=== PATIENT | female | born 1955 | race Caucasian/White ===

== ENCOUNTER 2019-02-13 07:16 | Day surgery (SDC) | payer MEDICAID ==
[~2019-02-13 07:16] MED LIST: Midazolam 1 MG/ML 2 ML SDV ONE; Propofol 200 MG/20 ML SDV ONE; fentaNYL 100 MCG/2 ML SDV ONE
[2019-02-13] MEDS ORDERED: Lactated Ringers 1,000 ML IV SCH (08:45)
[2019-02-13] MEDS ORDERED: Propofol 200 MG/20 ML SDV ONE (09:32)
[2019-02-13 11:03] VITALS: BP 132/71; PULSE 59
--- NOTE | 2019-02-13 12:51 | OR ---
DATE OF PROCEDURE: 02/13/2019 PREOPERATIVE DIAGNOSIS: Positive Cologuard. POSTOPERATIVE DIAGNOSES: Diverticulosis, multiple colon polyps. PROCEDURE: Colonoscopy to the cecum with biopsy resection and/or snare cautery polypectomy of polyps at 50 cm, distal transverse colon, proximal transverse colon, right colon, cecum, transverse colon, 20 cm from the anal verge, and rectum. SURGEON: Vj Bender MD ANESTHESIA: IV anesthesia with monitored anesthesia care. INDICATION: This 63-year-old white female is referred for a colonoscopy. She had a positive Cologuard. She says her last colonoscopic exam was done 12 years ago. I counseled her for the procedure, including risks and alternatives, and she gave her informed consent to proceed. DESCRIPTION OF PROCEDURE: The patient was placed in the left lateral decubitus position. IV anesthesia was administered by the Anesthesia Service. Time-out was held. A rectal exam was performed, which was unremarkable. The flexible video Olympus colonoscope was introduced through her anus, up her rectum, and out her colon all the way to the cecum. En route, we encountered multiple polyps, removing polyps at 50 cm, distal transverse colon, proximal transverse colon, right colon, and cecum. The proximal transverse colon polyp was biopsied initially. It was too large to remove using this technique and a snare was passed about its base. It was elevated up away from the bowel wall and amputated as electrocautery was applied. This polyp was aspirated through the scope and captured in a polyp trap. The scope was then slowly withdrawn from the cecum examining the mucosa throughout. We did see a single diverticulum in the left colon. At 20 cm, we saw a larger polyp. This was initially biopsied and then removed with the snare. Again, this involved placing the snare about the polyp's base, elevating it up away from the bowel wall and amputated it as electrocautery was applied. It was aspirated up through the scope and captured in a polyp trap. The scope was brought back to the rectum. We saw 2 small polyps in the rectum adjacent to each other, which were removed and sent to the laboratory as one specimen. The scope was retroflexed with the most distal rectum appearing unremarkable. The scope was straightened and removed. She tolerated the procedure well. Vj Bender MD /[id number] MTDD
== END 2019-02-13 11:13 | disposition home or self-care (01) ==
LOC: JP.SDS 07:16
PROVIDERS: ATTEND Surgery
DX: D12.5 Benign neoplasm of sigmoid colon (principal); D12.3 Benign neoplasm of transverse colon; D12.0 Benign neoplasm of cecum; D12.2 Benign neoplasm of ascending colon; K63.5 Polyp of colon; K62.1 Rectal polyp; K57.30 Diverticulosis of large intestine without perforation or abscess without bleeding; I35.1 Nonrheumatic aortic (valve) insufficiency; I10 Essential (primary) hypertension; E78.5 Hyperlipidemia, unspecified; J45.909 Unspecified asthma, uncomplicated; F17.200 Nicotine dependence, unspecified, uncomplicated; Z88.5 Allergy status to narcotic agent; Z88.2 Allergy status to sulfonamides; Z88.8 Allergy status to other drugs, medicaments and biological substances; Z91.030 Bee allergy status
CPT/HCPCS: 45380; 45385; J2250; J2704; J3010; J7120; 88305

== ENCOUNTER 2020-02-11 06:19 | Day surgery (SDC) | payer MEDICARE ==
[2020-02-11] MEDS: Sodium Chloride 0.9% 1,000 ML IV SCH (07:02)
[2020-02-11] MEDS ORDERED: Propofol 200 MG/20 ML SDV ONE (07:31)
[2020-02-11] MEDS ORDERED: fentaNYL 100 MCG/2 ML SDV ONE (07:31)
[2020-02-11] MEDS ORDERED: Midazolam 1 MG/ML 2 ML SDV ONE (07:32)
[2020-02-11 09:42] VITALS: BP 115/63; PULSE 61
--- NOTE | 2020-02-11 10:46 | OR ---
DATE OF PROCEDURE: 02/11/2020 SURGEON: Abdirahman Gregory MD PROCEDURE: Colonoscopy. FINDINGS: 1. Cecal polyp, approximately 5 mm, completely removed using cold biopsy forceps. 2. Ascending colon polyp, approximately 5 mm, completely removed using cold biopsy forceps. 3. Transverse colon polyp, approximately 8 mm, completely removed using hot snare wire device. COMPLICATIONS: None. TARIFF INSPECTOR: None. ANESTHESIA: MAC. PREOPERATIVE DIAGNOSIS: History of colon polyp. POSTOPERATIVE DIAGNOSIS: History of colon polyp. RISKS: Risks, benefits, alternatives, and limitations including, but not limited to infection bleeding and perforation were explained to the patient, who wished to proceed. PROCEDURE IN DETAIL: The patient was placed in left lateral decubitus position. Digital rectal exam was performed without abnormality. Scope was introduced and advanced atraumatically to the ileocecal valve. Photo was taken. Scope was brought back through the ascending, transverse, descending colon, and retroflexed. The aforementioned polyps were all identified and completely removed as described above. The prep was marginally acceptable with solid and liquid stool remaining. Suction and irrigation techniques were used to facilitate and maximize observation with approximately 90% of the luminal surface that could be seen. No abnormalities on retroflexion. The patient tolerated the procedure well. Abdirahman Gregory MD /[id number]
== END 2020-02-11 09:45 | disposition home or self-care (01) ==
LOC: JP.SDS 06:19
PROVIDERS: ATTEND Surgery
DX: Z12.11 Encounter for screening for malignant neoplasm of colon (principal); D12.0 Benign neoplasm of cecum; D12.2 Benign neoplasm of ascending colon; D37.4 Neoplasm of uncertain behavior of colon; I10 Essential (primary) hypertension; Z86.010 Personal history of colon polyps
CPT/HCPCS: 88305; J2250; J2704; J3010; J7030

== ENCOUNTER 2020-06-09 20:01 | Emergency (ER) | payer MEDICARE ==
[2020-06-09 20:36] VITALS: BP 147/53; PULSE 74
--- NOTE | 2020-06-09 20:55 | EDM.PDOC ---
ED HPI GENERAL MEDICAL PROBLEM - General Chief Complaint: Lower Extremity Injury/Pain Stated Complaint: RIGHT FOOT INJURY/FALL Time Seen by Provider: 06/09/20 20:46 Source of Information: Reports: Patient, RN Notes Reviewed History Limitations: Reports: No Limitations - History of Present Illness INITIAL COMMENTS - FREE TEXT/NARRATIVE: 64-year-old female presents emergency department a complaint of right ankle pain, she injured herself this morning when she slipped on icy stairs and rolled her ankle she believes it was inward. She has been walking on it all day but the pain has gotten significantly worse. Can no longer bear weight Right Foot Pain Score (Numeric/FACES): 8 - Related Data Allergies Allergy/AdvReac Type Severity Reaction Status Date / Time bee venom protein (honey bee) Allergy Cannot Verified 06/09/20 20:50 Remember Sulfa (Sulfonamide Allergy Hives Verified 06/09/20 20:50 Antibiotics) oxycodone AdvReac Nausea Verified 06/09/20 20:50 Qrrfmcn-Roi-Xff Reductase AdvReac Muscle Verified 06/09/20 20:50 Inhibitor Aches Home Meds: Home Meds Losartan [Cozaar] 50 mg PO DAILY 06/04/13 [History] Theophylline [Real-24] 600 mg PO BID 06/04/13 [History] metFORMIN [metFORMIN XR] 1,000 mg PO BIDM 06/04/13 [History] EPINEPHrine [Epipen 2-Beka] 0.3 ml IM ONETIME PRN 02/11/19 [History] Metoprolol Succinate [Toprol XL] 50 mg PO DAILY 02/13/19 [History] Triamcinolone Acetonide [Kenalog 0.1% Crm] 1 applic TOP BID 02/10/20 [History] tiZANidine [Zanaflex] 4 mg PO BID PRN 02/10/20 [History] Acetaminophen [Tylenol Extra Strength] 500 mg PO ASDIRECTED PRN 02/11/20 [History] Multivit-Min/Iron/Folic/Lutein [Centrum Silver Women Tablet] 1 each PO DAILY 02/11/20 [History] Past Medical History HEENT History: Reports: Allergic Rhinitis, Sinusitis Cardiovascular History: Reports: Heart Murmur, Hypertension, Other (See Below) Other Cardiovascular History: aortic insuffiancy Respiratory History: Reports: Asthma Gastrointestinal History: Reports: Colon Polyp Genitourinary History: Reports: None 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: Musculoskeletal History: Reports: Arthritis, Fracture Neurological History: Reports: Concussion, Head Trauma Endocrine/Metabolic History: Reports: Diabetes, Type II, Obesity/BMI 30+ Hematologic History: Reports: Blood Transfusion(s) - Infectious Disease History Infectious Disease History: Reports: Chicken Pox, Measles, Mumps, Shingles, Other (See Below) Other Infectious Disease History: hepatitis in 1st grade - Past Surgical History HEENT Surgical History: Reports: Oral Surgery, Tonsillectomy Cardiovascular Surgical History: Reports: None Respiratory Surgical History: Reports: None GI Surgical History: Reports: Appendectomy, Colonoscopy Female Surgical History: Reports: Tubal Ligation, Other (See Below) Other Female Surgeries/Procedures: 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 Endocrine Surgical History: Reports: None Musculoskeletal Surgical History: Reports: Shoulder Surgery, Other (See Below) Social & Family History - Caffeine Use Caffeine Use: Reports: None Review of Systems - Review of Systems Review Of Systems: See Below Constitutional: Reports: No Symptoms Musculoskeletal: Reports: Foot Pain (Right ankle) ED EXAM, GENERAL - Physical Exam Exam: See Below Free Text/Narrative:: Examination of the right ankle I do appreciate a little bit of edema lateral aspect of the lateral malleolus she is tender to the touch both malleolus ease will not tolerate any tilt test at all does tolerate a drawer test without difficulty pedal pulses +2 cannot bear weight does have abrasion of the dorsum of the foot Course - Vital Signs Last Recorded V/S: Last Vital Signs Temp 96.5 F L 06/09/20 20:50 Pulse 74 06/09/20 20:50 Resp 16 06/09/20 20:50 BP 147/53 H 06/09/20 20:50 Pulse Ox 97 06/09/20 20:50 - Orders/Labs/Meds Orders: Active Orders 24 hr Category Date Time Status Ankle Min 3V Rt [CR] Stat Exams 06/09/20 20:52 Taken Departure - Departure Time of Disposition: 21:16 Disposition: Home, Self-Care 01 Condition: Fair Clinical Impression: Right ankle sprain Qualifiers: Encounter type: initial encounter Involved ligament of ankle: unspecified ligament Qualified Code(s): S93.401A - Sprain of unspecified ligament of right ankle, initial encounter - Discharge Information Instructions: Ankle Sprain Referrals: Sperle,Jose J, MD [Primary Care Provider] - Forms: ED Department Discharge Additional Instructions: Continue to use the splint and crutches as needed for pain control try the Tylenol 3 for breakthrough pain remember not to take more than 4000 mg Tylenol in a 24-hour. Please followup with your primary care provider in 3-5 days if not better, please call return to the emergency department with worsening of symptoms. Sepsis Event Note (ED) - Evaluation Sepsis Screening Result: No Definite Risk - Focused Exam Vital Signs: Vital Signs Temp Pulse Resp BP Pulse Ox 06/09/20 20:50 96.5 F L 74 16 147/53 H 97 06/09/20 20:34 96.5 F L 74 16 147/53 H 97 - My Orders Last 24 Hours: My Active Orders 06/09/20 20:52 Ankle Min 3V Rt [CR] Stat - Assessment/Plan Last 24 Hours: My Active Orders 06/09/20 20:52 Ankle Min 3V Rt [CR] Stat Plan: Assessment Acuity = acute Site and laterality = right ankle sprain Etiology = secondary trauma Manifestations = none Location of injury = Home Lab values = ankle x-ray I did review films myself I cannot appreciate any acute process, the official read from radiology is pending Plan Given an air gel splint crutches prescription written for Tylenol with codeine 1 tablet p.o. every 3 hours as needed total #15 follow-up primary care 3 to 5 days if not better will contact if the radiology read differs This note was dictated using [employer] voice recognition software please call with any questions on syntax or grammar.
--- NOTE | 2020-06-10 09:21 | CR ---
Ankle Min 3V Rt CLINICAL HISTORY: Pain, fall FINDINGS: The soft tissues are mildly prominent. There is a small ossific density off the tip of the fibula. This could represent a ligamentous avulsion. Ankle mortise is intact. There is a prominent os trigonum. There is a double density over the distal fibula which may be an osseous prominence. No cortical fracture line is seen. Impression: Tiny ossific density at the tip of the fibula. This could be a secondary ossification center or small ligamentous avulsion. There is some asymmetry in the distal fibula without obvious fracture line. If clinical symptomatology persists or worsens a repeat exam is recommended.
== END 2020-06-09 21:58 | disposition home or self-care (01) ==
LOC: JP.ED 20:01
DX: S93.401A Sprain of unspecified ligament of right ankle, initial encounter (principal); I10 Essential (primary) hypertension; J45.909 Unspecified asthma, uncomplicated; E11.9 Type 2 diabetes mellitus without complications; E66.9 Obesity, unspecified; Z68.33 Body mass index [BMI] 33.0-33.9, adult; Z91.030 Bee allergy status; Z88.2 Allergy status to sulfonamides; Z88.5 Allergy status to narcotic agent; Z88.8 Allergy status to other drugs, medicaments and biological substances; Z79.84 Long term (current) use of oral hypoglycemic drugs; Z79.899 Other long term (current) drug therapy; X50.9XXA Other and unspecified overexertion or strenuous movements or postures, initial encounter
CPT/HCPCS: 73610-26-RT; 73610-RT; 99282; 99283

== ENCOUNTER 2021-05-27 07:41 | Day surgery (SDC) | payer MEDICARE ==
[2021-05-27] MEDS ORDERED: Sodium Chloride 0.9% 1,000 ML IV SCH (08:15)
[2021-05-27 11:21] VITALS: BP 106/49; PULSE 54
--- NOTE | 2021-05-28 08:22 | OR ---
DATE OF PROCEDURE: SURGEON: Abdirahman Gregory MD PROCEDURE: Colonoscopy. FINDINGS: 1. Transverse colon polyp, approximately 8 mm, completely removed using hot snare wire device. 2. Sigmoid colon polyp, approximately 8 mm, completely removed using hot snare wire device. 3. Diverticulosis, mild to moderate. 4. Tortuous sigmoid colon. COMPLICATIONS: None. EXPLOSIVES WORKER: None. ANESTHESIA: MAC. PREOPERATIVE DIAGNOSIS: Screening colonoscopy. POSTOPERATIVE DIAGNOSIS: Screening colonoscopy. RISKS: Risks, benefits, alternatives, and limitations including but not limited to infection, bleeding, perforation, and false positives and false negatives were explained to the patient, and she wished to proceed. PROCEDURE IN DETAIL: The patient was placed in left lateral decubitus position. Digital rectal exam was performed without abnormalities. Scope was introduced and advanced atraumatically to the ileocecal valve. A photo was taken of appendiceal orifice. The scope was brought back to the ascending, transverse, and descending colon and retroflexed. The aforementioned polyps were identified and completely removed. No evidence of old or new blood. No masses. The polyps were removed without abnormal bleeding as described above. Diverticulosis described as mild, limited to sigmoid colon without evidence of diverticulitis. The patient did have a fairly significant tortuous sigmoid colon. No abnormalities on retroflex. Greater than 8 minutes was spent removing the scope. Prep was acceptable, approximately 90% of luminal surface could be seen. The patient tolerated the procedure well. Abdirahman Gregory MD /[id number]
== END 2021-05-27 11:15 | disposition home or self-care (01) ==
LOC: JP.SDS 07:41
PROVIDERS: ATTEND Surgery
DX: Z12.11 Encounter for screening for malignant neoplasm of colon (principal); D12.3 Benign neoplasm of transverse colon; K57.30 Diverticulosis of large intestine without perforation or abscess without bleeding; F17.200 Nicotine dependence, unspecified, uncomplicated; J45.909 Unspecified asthma, uncomplicated; I10 Essential (primary) hypertension; E11.9 Type 2 diabetes mellitus without complications
CPT/HCPCS: 45385; J2250; J2704; J3010; J7030

== ENCOUNTER 2022-12-04 15:31 | Emergency (ER) | payer MEDICARE ==
[2022-12-04] MEDS ORDERED: Albuterol/Ipratropium 3.0-0.5 MG/3 ML Neb Soln NEB ONE (16:01)
[2022-12-04 17:15] VITALS: BP 176/62; PULSE 66
== END 2022-12-04 16:44 | disposition home or self-care (01) ==
LOC: JP.ED 15:31
DX: J40 Bronchitis, not specified as acute or chronic (principal); I10 Essential (primary) hypertension; E11.9 Type 2 diabetes mellitus without complications; E66.9 Obesity, unspecified; F17.210 Nicotine dependence, cigarettes, uncomplicated; Z68.31 Body mass index [BMI] 31.0-31.9, adult; Z88.8 Allergy status to other drugs, medicaments and biological substances; Z88.5 Allergy status to narcotic agent; Z88.2 Allergy status to sulfonamides; Z91.030 Bee allergy status
CPT/HCPCS: 94640; 99284; J7620

== ENCOUNTER 2023-05-17 06:38 | Day surgery (SDC) | payer MEDICARE ==
[2023-05-17] MEDS ORDERED: Propofol 200 MG/20 ML SDV ONE (07:13)
[2023-05-17] MEDS ORDERED: fentaNYL 50 MCG/ML SDV ONE (07:13)
[2023-05-17] MEDS ORDERED: Midazolam 1 MG/ML 2 ML SDV ONE (07:13)
[2023-05-17] MEDS: Lactated Ringers 1,000 ML IV SCH (09:24)
[2023-05-17 09:26] VITALS: BP 119/43; PULSE 66
== END 2023-05-17 09:25 | disposition home or self-care (01) ==
LOC: JP.SDS 06:38
PROVIDERS: ATTEND Student in an Organized Health Care Education/Training Program
DX: K21.00 Gastro-esophageal reflux disease with esophagitis, without bleeding (principal); K29.70 Gastritis, unspecified, without bleeding; K31.7 Polyp of stomach and duodenum; D13.2 Benign neoplasm of duodenum; E11.9 Type 2 diabetes mellitus without complications; E78.5 Hyperlipidemia, unspecified; I10 Essential (primary) hypertension; K82.8 Other specified diseases of gallbladder; J45.909 Unspecified asthma, uncomplicated; I35.1 Nonrheumatic aortic (valve) insufficiency; F17.210 Nicotine dependence, cigarettes, uncomplicated; Z79.84 Long term (current) use of oral hypoglycemic drugs; Z79.899 Other long term (current) drug therapy; Z88.2 Allergy status to sulfonamides; Z88.8 Allergy status to other drugs, medicaments and biological substances; Z88.5 Allergy status to narcotic agent
CPT/HCPCS: J2250; J2704; J3010; J7120